=== PATIENT | female | born 1935 | race Caucasian/White ===

== ENCOUNTER 2021-10-05 13:12 | Emergency (ER) | payer MEDICARE, OTHER, SELFPAY ==
--- NOTE | ~2021-10-05 | XR_ITS ---
EXAMINATION: LUMBAR SPINE AND SACRUM. CLINICAL INFORMATION: Pain after fall COMPARISON: None TECHNIQUE: 3 views of lumbar spine and 3 views of the sacrum FINDINGS: Lumbar spine there are mild degenerative changes with grade 1 anterior listhesis of L4 over L5 and arthropathy at the level of L4-L5 and L5-S1. There is mild narrowing cough L1-L2 and L2-L3. No evidence of fractures. There are incidental findings of pelvic calcifications on the right is likely in the uterine fibroids. Sacrum and AP pelvis reveals no fractures. Sacroiliac joints are unremarkable. XR/XR sacrum coccyx min 2V IMPRESSION: No fractures seen. 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 Dystrophic calcifications in the uterine fibroids on the right.
--- NOTE | ~2021-10-05 | XR_ITS ---
EXAMINATION: XR WRIST, LEFT CLINICAL INFORMATION: Pain after fall COMPARISON: None TECHNIQUE: PA, lateral, and oblique views of the left wrist. FINDINGS: The bones and soft tissues are normal. No fracture. Alignment is anatomic with normal joint spaces. No erosions or abnormal soft tissue calcifications. XR/XR wrist LT 2V IMPRESSION: Normal left wrist.
--- NOTE | ~2021-10-05 | XR_ITS ---
EXAMINATION: LUMBAR SPINE AND SACRUM. CLINICAL INFORMATION: Pain after fall COMPARISON: None TECHNIQUE: 3 views of lumbar spine and 3 views of the sacrum FINDINGS: Lumbar spine there are mild degenerative changes with grade 1 anterior listhesis of L4 over L5 and arthropathy at the level of L4-L5 and L5-S1. There is mild narrowing cough L1-L2 and L2-L3. No evidence of fractures. There are incidental findings of pelvic calcifications on the right is likely in the uterine fibroids. Sacrum and AP pelvis reveals no fractures. Sacroiliac joints are unremarkable. XR/XR lumbar spine 2-3V IMPRESSION: No fractures seen. 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 Dystrophic calcifications in the uterine fibroids on the right.
[2021-10-05 13:25] VITALS: BP 122/60; PULSE 77; RESP 14; TEMP 37.1; O2SAT 93; BMI 30.2
[2021-10-05 13:31] VITALS: BP 125/77; PULSE 83; O2SAT 16
--- NOTE | 2021-10-05 13:52 | ED_ITS ---
HPI - Back Pain/Injury General Chief Complaint: Back Pain/Injury Stated Complaint: fall Time Seen by Provider: 10/05/21 13:43 Source: patient Mode of arrival: ambulatory Limitations: no limitations History of Present Illness HPI Narrative: 85-year-old female who presents emergency department for evaluation of a fall at home. Patient states she walks with a walker. She was walking towards the bathroom when she slipped and fell. She states she landed on her buttocks and struck her back on something that was protruding from the wall. She denied any head injury. She states that her son helped her up and she was able to walk with a walker. She did take some Tylenol around 12:00 p.m. with no relief for pain. She states that since the fall she has been having constant, severe pain in her buttocks and lower back area. The pain is a sharp pain which is worse with movement. The pain is moderate to severe in intensity. She is also complaining of pain in her left wrist . She states the pain is worse with movement and is [id number] in intensity. She denied any head injury. She denied loss of consciousness. She was not ill in any way prior to the fall. The patient has not been vaccinated for COVID-19. Related Data Allergies Allergy/AdvReac Type Severity Reaction Status Date / Time No Known Allergies Allergy Unverified 06/02/20 14:45 [No Known Allergies*] Review of Systems Review of Systems: Yes all other systems are reviewed and are negative [facility] Past Medical History [facility] Narrative: Past medical history: None. Past surgical history: Appendecto my, cholecystectomy. Social history: Patient lives at home with her son. She stop smoking 4 months prior. She smoked 1 pack of cigarettes per day times 15 years. She denies alcohol use. She denies drug use. Medical History FH: cholecystectomy Surgical History History of appendectomy Social History Social History Advance Directives: No Advance Directives Information Provided: No Physical Exam Vital Signs: Vital Signs: Last Vital Signs Temp 98.3 F 10/05/21 15:27 Pulse 71 01/20/22 15:27 Resp 16 10/05/21 15:27 BP 121/73 10/05/21 15:27 Pulse Ox 92 10/05/21 15:27 BMI result Body Mass Index 30.2 Const: General: cooperative and no acute distress Orientation/consciousness: oriented to person and oriented to place Limitations: no limitations HENMT: Head: Yes normal to inspection, Yes normocephalic and Yes atraumatic Ears: external ears normal General nose exam: Normal external nose present Face and sinus: Yes normal facial exam Mouth: Normal oral and palatal mucosa present Throat: Yes posterior oropharynx normal Eyes: General: appearance normal, both eyes and all related structures Pupils: Equal, round and reactive pupils present Neck: Neck: Yes normal visual inspection, Yes no lymphadenopathy, Yes trachea midline and Yes supple Chest: Chest palpation & inspection: normal inspection of the chest and normal palpation of entire chest wall Resp: Effort & Inspection: normal respiratory effort and able to speak in complete sentences Auscultation: clear to auscultation bilaterally Cardio: Rate: regular rate Rhythm: regular rhythm Heart sounds: S1 normal heart sound present, S2 normal heart sound present and no murmurs GI: Inspection: Yes normal to inspection Palpation (GI): Soft to palpation, nontender and no guarding Auscultation: normal bowel sounds Back/Spine/Pelvis: Thoracic/Lumbar Spine: thoracic and lumbar spine normal to inspection, paraspinal muscle tenderness (Lumbar sacral area) bilaterally, No thoracic spinal tenderness, lumbar spinal tenderness at L1, at L2, at L3, at L4 and at L5 and No straight leg raise positive Coccyx: Coccyx tenderness present (Moderate to severe) on direct palpation; Negative for associated swelling Skin: General skin exam: no rashes or lesions noted Neuro: General: oriented to person and oriented to place Cranial nerves: Yes CN's II-XII intact bilaterally and Yes Equal, round and reactive pupils present Cognition (Neuro): normal cognition Motor exam (neuro): 5/5 motor strength present throughout Extrem: Other: Tender left wrist with full range of motion, no ecchymosis or soft tissue swelling, neurovascular intact Psych: Appearance: grossly normal Speech and movement: Normal speech and movement present Affect: normal affect Attitude: cooperative Thought process: Normal thought process present Thought content: Normal thought content present Course Course Course Narrative: 85-year-old female who presents emergency department for evaluation of a slip and fall at home. Patient was walking to her bathroom using her walker when she slipped, fell landed on her buttocks and struck her back on an object protruding from the wall. Her son was able to help her up and she was able to walk with her walker. She did take some Tylenol prior to coming to the emergency department but the pain got worse, she states she had more difficulty moving , therefore she came to the emergency department for evaluation. Vital signs were normal. Examination did reveal tenderness palpation of her lumbar sacral and coccyx spine as well as the paraspinal muscles in this area. She also had tenderness palpation of her left wrist. Patient was ordered to get Motrin 400 mg orally. I did order lumbar sacral coccyx spine x-rays and a left wrist x-ray. 1603: X-rays revealed no acute fractures. Patient's presentation is most likely consistent with contusion of her lower back and coccyx and sprain of her left wrist. The patient was advised to take Tylenol and ibuprofen for pain. She is also advised to use ice. She was given printed and verbal instructions and discharged home. Discharge Plan Discharge Clinical Impression: Contusion of lower back Qualifiers: Encounter type: initial encounter Qualified Code(s): S30.0XXA - Contusion of lower back and pelvis, initial encounter Left wrist sprain Qualifiers: Encounter type: initial encounter Qualified Code(s): S63.502A - Unspecified sprain of left wrist, initial encounter Patient Disposition: Home, Self-Care Instructions: Contusion in Adults (ED), Acute Low Back Pain (ED) Additional Instructions: The x-ray of your lumbar, sacral and coccygeal spine revealed no broken bones which is very reassuring. Your pain is most likely secondary to bruising ( contusions) to your lower back and buttocks area from your fall. Back Pain Discharge Instructions: Take ibuprofen 200 mg pills, 2 pills every 6 hours as needed for pain. Take Tylenol (acetaminophen) 500 mg pills, 2 pills every 4 to 6 hours as needed for pain. Apply ice for 15 minutes to the area that hurts on your back, then apply a heating a pad on low for 15 minutes. Do this 4-6 times a day to help reduce the pain in your back. Continue with normal activities as tolerated since staying in bed and not moving around will make your pain worse. . Please return to the Emergency Department or see your doctor immediately if your symptoms get worse or if you develop any new symptoms that are concerning you. Follow up with your doctor in 2 day. Please read the other printed discharge instructions on acute lower back pain and contusions in adults
[2021-10-05] MEDS: Ibuprofen 400 MG TABLET PO (14:16)
[2021-10-05 15:27] VITALS: BP 121/73; PULSE 71; RESP 16; TEMP 36.8; O2SAT 92
== END 2021-10-05 19:20 | disposition home or self-care (01) ==
PROVIDERS: Emergency Provider Emergency Medicine Emergency Medical Services
DX: S30.0XXA Contusion of lower back and pelvis, initial encounter (principal); S63.502A Unspecified sprain of left wrist, initial encounter; W01.0XXA Fall on same level from slipping, tripping and stumbling without subsequent striking against object, initial encounter; Y93.01 Activity, walking, marching and hiking; Y92.039 Unspecified place in apartment as the place of occurrence of the external cause; Y99.9 Unspecified external cause status
CPT/HCPCS: 72100; 72220; 73100; 99283; 99284

== ENCOUNTER 2021-10-20 15:53 | Inpatient (IN) | payer MEDICARE, OTHER, SELFPAY ==
--- NOTE | ~2021-10-20 | XR_ITS ---
EXAMINATION: XR HIP, LEFT CLINICAL INFORMATION: Hip pain. Fall. COMPARISON: None TECHNIQUE: Frontal view of chest. Two views of the left hip. FINDINGS: No acute abnormality. No fracture or dislocation. Mild degenerative change of hip joints. Sacroiliac joints are normal. Normal symphysis pubis. Degenerative spondylosis lower lumbar spine. Vascular calcification of iliac arteries. XR/XR hip LT min 2V IMPRESSION: No acute abnormality of pelvis or hips.
--- NOTE | ~2021-10-20 | CT_ITS ---
EXAMINATION: CT ABDOMEN AND PELVIS WITHOUT CONTRAST CLINICAL INFORMATION: Evaluate for a mass. COMPARISON: CTA of the abdomen and pelvis dated from 06/17/2015. TECHNIQUE: Multidetector volumetric imaging was performed from the superior aspect of the liver through the pubic symphysis. Sagittal and coronal reformatted images were obtained on the technologist's workstation. This CT examination was performed using dose optimization techniques as appropriate, variously including the following: *Automated exposure control *Adjustment of mA and/or kV according to patient size (this includes techniques or standardized protocols for targeted exams where dose is matched to indication/reason for exam; i.e. extremities or head) *Use of iterative reconstruction technique DLP: 486 mGy-cm FINDINGS: Motion degraded study. LUNG BASES: Interlobular septal thickening in the right lung base with multiple subcentimeter bilateral pulmonary nodules. Please refer to separate report from same day CT chest for additional details. LIVER, GALLBLADDER, AND BILIARY TREE: The noncontrast liver is normal in size, shape, and attenuation. No focal hepatic lesion or biliary ductal dilatation is present. The gallbladder is not clearly visualized, possibly surgically removed. PANCREAS: Atrophic. The main pancreatic duct is nondilated. No peripancreatic free fluid or fat stranding. SPLEEN: Unremarkable. ADRENAL GLANDS: New bilateral adrenal masses measuring on the left side approximately 2.9 x 3.3 cm and on the right side approximately 3.5 x 2.7 cm. KIDNEYS AND URETERS: The kidneys are normal in size, shape, and attenuation. Redemonstration of water density cysts. No hydronephrosis, hydroureter, or calculi seen. No perinephric stranding. BLADDER: Unremarkable. GASTROINTESTINAL TRACT: The bowel is underdistended limiting assessment of wall thickening and mural abnormalities. The stomach and the small bowel are nondilated. No pericolic inflammatory changes. Extensive diverticulosis of the distal colon. The appendix is not visualized. ABDOMINAL WALL: No significant hernia is appreciated. LYMPH NODES: New retroperitoneal lymphadenopathy, predominantly centered at the level of L1-L3, measuring up to 1.5 cm in maximum short axis. Redemonstration of a conglomerate of mesenteric calcifications at the level of L4-L5, stable since 2015. VASCULAR: Extensive atherosclerotic disease. The abdominal aorta measures up to 3.2 cm in maximum diameter which is increased from 2.8 cm in 2015. PELVIC VISCERA: No pelvic masses. OSSEOUS STRUCTURES: Redemonstration of a right gluteal lipoma. New compression deformity at L2. There is also a new lytic and destructive appearing lesion in the right superior pubic rami (12:660). CT/CT abdomen pelvis wo con IMPRESSION: Bilateral adrenal masses and new retroperitoneal lymphadenopathy are concerning for metastatic disease. New compression deformity at L2 and lytic destructive appearing lesion in the right superior pubic rami concerning for pathologic fractures and metastatic bony disease. The lack of intravenous contrast limits evaluation of solid visceral organs including the liver, spleen, pancreas, and kidneys. Additionally, bowel underdistention limits assessment of underlying bowel lesions. The abdominal aorta measures up to 3.2 cm in maximum diameter, previously 2.8 cm. If indicated, recommend consultation with a vascular specialist.
--- NOTE | ~2021-10-20 | CT_ITS ---
EXAMINATION: CT HEAD WITHOUT CONTRAST CT CERVICAL SPINE WITHOUT CONTRAST CLINICAL INFORMATION: Head injury. COMPARISON: CTA of the head 01/10/2016. MRI brain 01/09/2016 TECHNIQUE: Imaging was performed from the skull base to vertex without intravenous administration of contrast. In addition, helical noncontrast CT imaging was acquired through the cervical spine and source images were reviewed along with axial reconstructions and sagittal and coronal MPRs. [This CT examination was performed using dose optimization techniques as appropriate, variously including the following: *Automated exposure control *Adjustment of mA and/or kV according to patient size (this includes techniques or standardized protocols for targeted exams where dose is matched to indication/reason for exam; i.e. extremities or head) *Use of iterative reconstruction technique] DLP: 1145 mGy-cm FINDINGS: HEAD: There are multiple hyperdense lesions within the brain parenchyma bilaterally consistent with metastatic disease. One the largest is in the right frontal lobe and at the dick-white matter junction. This measures 1.3 cm. A small calcification associated with this lesion. Axial image 58/81 series 3. There is vasogenic edema in the surrounding white matter tracks. Additional scattered lesions present bilaterally. Some retail wireless sales representative lesions are; 1. Right occipital lobe 1.1 cm. Axial image 47/81. 2. Left frontal lobe image 51/81 series 3 5 mm lesion. 3. Left occipital lobe image 51/81 series 3 5 mm lesion. 4. 4 mm lesion at the vertex right frontal lobe axial image 64/81 series 3. 5. 4 mm lesion in the left frontal lobe at the vertex axial image 64/81 series 3 6. 3 mm lesion at the vertex left frontal and axial image 67/81 series 3. No midline shift. No intracranial hemorrhage. No extra-axial collection. There is generalized global volume loss. There is marked prominence of the ventricles and the sulci . There is moderate hypodensity of the periventricular white matter due to chronic small vessel ischemic disease. There are vascular calcifications of the internal carotid arteries bilaterally. CERVICAL SPINE: There is no evidence of acute cervical spine fracture. Vertebral bodies remain normal in height. Cervical vertebrae have normal alignment. There is multilevel degenerative spondylosis of the cervical spine with disc height narrowing and endplate spurs and facet joint arthrosis No pre- or paravertebral soft tissue abnormality is identified. Limited assessment of the lung apices is unremarkable. CT/CT cervical spine wo con IMPRESSION: 1. Multiple hyperdense lesions in the brain parenchyma consistent with metastatic disease. There is associated vasogenic edema associated with the lesions. The edema is most pronounced in the right frontal lobe. 2. No CT evidence of acute cervical spine fracture or traumatic subluxation
--- NOTE | ~2021-10-20 | CT_ITS ---
EXAMINATION: CT HIP WITHOUT CONTRAST, LEFT CLINICAL INFORMATION: Pain COMPARISON: Hip radiographs 10/20/2021 TECHNIQUE: Helical scanning was performed with submillimeter collimation through the pelvis with the use of oral contrast without intravenous contrast. Sagittal and coronal multiplanar 2-D reconstructions were obtained. This CT examination was performed using dose optimization techniques as appropriate, variously including the following: *Automated exposure control *Adjustment of mA and/or kV according to patient size (this includes techniques or standardized protocols for targeted exams where dose is matched to indication/reason for exam; i.e. extremities or head) *Use of iterative reconstruction technique DLP: 175 mGy-cm FINDINGS: Colonic diverticulosis without evidence of diverticulitis. No lymphadenopathy. Partially imaged urinary bladder is unremarkable. No acute fracture or dislocation. There are mild degenerative changes of the left hip with acetabular spurring and subchondral cystic change. No joint effusion. Soft tissues are unremarkable. CT/CT hip LT wo con IMPRESSION: No acute fracture or dislocation. Mild degenerative changes of the left hip.
--- NOTE | ~2021-10-20 | CT_ITS ---
EXAMINATION: CT CHEST WITHOUT CONTRAST CLINICAL INFORMATION: Shortness of breath. COMPARISON: CT chest dated from 08/15/2016. TECHNIQUE: Multidetector volumetric CT imaging of the chest was done. Axial MIP volume rendering provided. Sagittal and coronal reformatted images were obtained. This CT examination was performed using dose optimization techniques as appropriate, variously including the following: *Automated exposure control *Adjustment of mA and/or kV according to patient size (this includes techniques or standardized protocols for targeted exams where dose is matched to indication/reason for exam; i.e. extremities or head) *Use of iterative reconstruction technique DLP: 496 mGy-cm FINDINGS: LUNGS: A right upper lobe pulmonary mass measuring 3.1 x 3 cm (7:203) is markedly increased in size from 0.9 x 0.9 cm in 2016. A somewhat irregular and difficult to accurately define nodule in the right upper lobe measuring 1.6 x 1.1 cm (7:172) in retrospect measured 0.2 cm in 2016. There are multiple additional new pulmonary nodules. Some of which are for example: A 0.9 cm subpleural nodularity in the right apex (7:98) and a 0.8 cm pulmonary nodule in the posterior aspect of the right upper lobe (7:194).. There is a background of irregular interlobular septal thickening throughout the right lung. A 0.3 cm pulmonary nodule in the left apex (7:89) is unchanged. A 0.3 cm pulmonary nodule posteriorly in the left upper lobe (7:153) appears new. A few other sub-2 mm pulmonary nodules in the left lower lobe, for instance image 250 of series 7 are also new. MEDIASTINUM: New significant mediastinal or hilar lymphadenopathy. For instance, a 2.3 cm short axis lower pretracheal lymph node (5:22), a 1.9 cm short axis subcarinal lymph node (5:27) and a conglomerate of approximately 3.4 x 2.2 cm right hilar lymph nodes (5:31). Normal heart size. Small pericardial effusion. 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 Normal appearance of the thyroid gland. PLEURA: No pleural effusion or pneumothorax. AXILLA: No axillary lymphadenopathy or chest wall masses. UPPER ABDOMEN: No abnormalities in the limitedly visualized upper abdomen. Please refer to same-day CT of the abdomen/pelvis. OSSEOUS STRUCTURES: No acute or aggressive osseous abnormalities. Thoracic spondylosis. CT/CT chest wo con IMPRESSION: Complex examination. Significant increased in size of several pulmonary nodules, some of which are now masses, with also multiple new bilateral pulmonary nodules. A dominant mass is situated in the right upper lobe measuring up to 3.1 cm. There is also new irregular septal thickening throughout the right lung and new massive mediastinal and hilar lymphadenopathy. These constellation of findings are worrisome for malignancy with metastatic lymphadenopathy and lymphangitic spread of disease in the right lung. However, other etiologies such as florid sarcoidosis cannot be entirely ruled out. Recommend tissue sampling.
--- NOTE | ~2021-10-20 | XR_ITS ---
EXAMINATION: XR CHEST CLINICAL INFORMATION: Shortness of breath. COMPARISON: 01/03/2017 chest radiograph. TECHNIQUE: Frontal view of the chest was obtained. FINDINGS: Increased right perihilar markings are seen with a nodular opacity in the right midlung measuring approximately 3.0 x 2.3 cm. The left lung is clear. The heart and mediastinal structures are unremarkable. XR/XR chest 1V IMPRESSION: 3.0 cm nodular opacity in the right midlung is nonspecific. This could represent a pulmonary nodule. Loculated fissural fluid cannot be excluded. Asymmetric increased right perihilar markings could represent infiltrates as well. A follow-up chest radiograph following termination of treatment is recommended to assess for improvement/resolution. If these findings do not resolve a chest CT scan is recommended for better characterization.
--- NOTE | ~2021-10-20 | CT_ITS ---
EXAMINATION: CT HEAD WITHOUT CONTRAST CT CERVICAL SPINE WITHOUT CONTRAST CLINICAL INFORMATION: Head injury. COMPARISON: CTA of the head 01/10/2016. MRI brain 01/09/2016 TECHNIQUE: Imaging was performed from the skull base to vertex without intravenous administration of contrast. In addition, helical noncontrast CT imaging was acquired through the cervical spine and source images were reviewed along with axial reconstructions and sagittal and coronal MPRs. [This CT examination was performed using dose optimization techniques as appropriate, variously including the following: *Automated exposure control *Adjustment of mA and/or kV according to patient size (this includes techniques or standardized protocols for targeted exams where dose is matched to indication/reason for exam; i.e. extremities or head) *Use of iterative reconstruction technique] DLP: 1145 mGy-cm FINDINGS: HEAD: There are multiple hyperdense lesions within the brain parenchyma bilaterally consistent with metastatic disease. One the largest is in the right frontal lobe and at the dick-white matter junction. This measures 1.3 cm. A small calcification associated with this lesion. Axial image 58/81 series 3. There is vasogenic edema in the surrounding white matter tracks. Additional scattered lesions present bilaterally. Some insurance account representative lesions are; 1. Right occipital lobe 1.1 cm. Axial image 47/81. 2. Left frontal lobe image 51/81 series 3 5 mm lesion. 3. Left occipital lobe image 51/81 series 3 5 mm lesion. 4. 4 mm lesion at the vertex right frontal lobe axial image 64/81 series 3. 5. 4 mm lesion in the left frontal lobe at the vertex axial image 64/81 series 3 6. 3 mm lesion at the vertex left frontal and axial image 67/81 series 3. No midline shift. No intracranial hemorrhage. No extra-axial collection. There is generalized global volume loss. There is marked prominence of the ventricles and the sulci . There is moderate hypodensity of the periventricular white matter due to chronic small vessel ischemic disease. There are vascular calcifications of the internal carotid arteries bilaterally. CERVICAL SPINE: There is no evidence of acute cervical spine fracture. Vertebral bodies remain normal in height. Cervical vertebrae have normal alignment. There is multilevel degenerative spondylosis of the cervical spine with disc height narrowing and endplate spurs and facet joint arthrosis No pre- or paravertebral soft tissue abnormality is identified. Limited assessment of the lung apices is unremarkable. CT/CT head/brain wo con IMPRESSION: 1. Multiple hyperdense lesions in the brain parenchyma consistent with metastatic disease. There is associated vasogenic edema associated with the lesions. The edema is most pronounced in the right frontal lobe. 2. No CT evidence of acute cervical spine fracture or traumatic subluxation
[2021-10-20 16:11] VITALS: BP 100/54; BP 140/66; PULSE 78; RESP 18; TEMP 36.3; O2SAT 86; BMI 23.8
--- NOTE | 2021-10-20 16:31 | ECG_ITS ---
Test Reason : FALL Blood Pressure : / mmHG Vent. Rate : 072 BPM Atrial Rate : 072 BPM P-R Int : 186 ms QRS Dur : 078 ms QT Int : 400 ms P-R-T Axes : 040 006 053 degrees QTc Int : 438 ms Normal sinus rhythm Low voltage QRS Borderline ECG When compared with ECG of 07-JAN-2017 11:07, No significant change was found Referred By: Ana Pedroza Electronically Signed By:LUZ MARIA OLEA
--- NOTE | 2021-10-20 16:41 | ED_ITS ---
HPI - Fall General Chief Complaint: Fall Stated Complaint: L HIP PAIN S/P FALL A WEEK AGO Time Seen by Provider: 10/20/21 16:19 History of Present Illness HPI Narrative: Patient is an 85-year-old female with a history smoking. Status post fall on Saturday. Hit her head. Been having increasing pain in the left hip area. Patient denies any loss of consciousness. Is not on any blood thinners. No nausea no vomiting. Minimal coughing which is baseline. Positive generalized malaise baseline is not on oxygen complaining of pain getting worse. Worse when she bears weight. patient not immunized for COVID Related Data Home Medications Medication Instructions Recorded Confirmed atorvastatin 20 mg tablet 1 tab PO DAILY 10/20/21 10/20/21 calcium carbonate 600 mg-vitamin 1 tab PO BID 10/20/21 10/20/21 D3 10 mcg (400 unit) tablet dabigatran etexilate 75 mg capsule 1 cap PO BID 10/20/21 10/20/21 (Pradaxa) diltiazem HCl 180 mg 1 cap PO QAM 10/20/21 10/20/21 capsule,extended release 24 hr, controlled (DILT-XR) lisinopril 20 mg tablet 1 tab PO DAILY 10/20/21 10/20/21 Allergies Allergy/AdvReac Type Severity Reaction Status Date / Time No Known Allergies Allergy Verified 10/20/21 16:11 [No Known Allergies*] Review of Systems Verdana 4l Review of Systems: Verdana 4d No fever no chills. Verdana 4d Positive chronic cough positive generalized malaise Verdana 4d Yes all other systems are reviewed and are negative [facility] Past Medical History Attestation statement: The following information was validated with the patient. Medical History FH: cholecystectomy Surgical History History of appendectomy Social History Social History Alcohol intake: never Patient Tobacco Use Status: Former Tobacco user Advance Directives: No Advance Directives Information Provided: No Physical Exam Verdana 4l Vital Signs: Verdana 4d Verdana 4d Vital Signs: Verdana 4d Verdana 4Bd Last Vital Signs Verdana 4d Emergency Medical Service Manager New 4d Emergency Medical Service Manager New 4d Temp 97.3 F 10/20/21 16:11 Emergency Medical Service Manager New 4d Pulse 78 10/20/21 16:11 Emergency Medical Service Manager New 4d Resp 18 10/20/21 16:11 BP 100/54 L 10/20/21 16:11 Pulse Ox 86 L 10/20/21 16:11 BMI result Body Mass Index 23.8 Appearance: Alert. Oriented X3. No acute distress. Eyes: Pupils equal, round and reactive to light. ENT: Pharynx normal. Neck: Normal inspection. Neck supple. No lymph nodes noted. No crepitus CVS: Normal heart rate and rhythm. Pulses normal. Normal S1 and S2 Respiratory: diminished breath sounds bilaterally Abdomen: Soft and nontender. No rigidity. No distention. good BS x4 Skin: Skin warm and dry. Normal skin color. Normal skin turgor. Extremities: No lower extremity edema. Neurovascular intact to all extremities. pain on flexion of the left hip. There is no gross shortening noted. Sensation intact. Pulses 2+ at dorsalis pedis. Dorsiflexion plantar flexion intact. Neuro: Oriented X 3. No motor deficit. No sensory deficit. Moving all e xtermities. No slurred speech MDM - Fall MDM Narrative Medical decision making narrative: Positive generalized malaise weakness. Frequent falls. Patient's EKG showed a sinus pattern heart rate was 70 MD QRS QT within normal limits is no acute ST segment elevation. Patient had decreased O2 sat but felt less likely patient has PE as patient has had a history of being on Pradaxa. Family came patient has been compliant. CT scan of the head was done as patient is on Pradaxa. Multiple falls potential trauma. 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 Question primary. CT scan of C-spine were grossly negative. X-ray of the hip was done to rule out fracture. No gross fracture was noted. CT scan of the hip showed no acute fracture. More likely patient has arthritis contusion. Especially in the setting of the fall being approximately 5-[address] scan of the chest abdomen pelvis was done. It was done without contrast because patient had an elevated creatinine. The result is still pending. A dose of steroid was given for the edema in the brain. Patient's finding was discussed with her and with her daughter. Case was discussed with the hospitalist team. Will admit for further evaluation. Medical Records Attestation: I reviewed the patient's medical records. Lab Data Attestation: I reviewed the patient's lab results. Result diagrams: 10/20/21 17:19 10/20/21 17:19 Labs: Lab Results 10/20/21 10/20/21 10/20/21 Range/Units 17:19 17:19 17:19 WBC 6.9 (4.8-10.8) X10*3/uL RBC 4.56 (4.20-5.50) X10*6/uL Hgb 13.7 (12.0-16.0) g/dl Hct 41.4 (37.0-47.0) % MCV 90.8 (80.0-98.0) fL MCH 30.0 (27.0-33.0) pg MCHC 33.1 (31.0-35.0) g/dl RDW 14.8 (11.0-16.0) % Plt Count 227 (160-400) X10*3/uL MPV 11.5 (9.4-12.3) fL Immature Gran % (Auto) 0.4 (0.0-0.4) % Neut % (Auto) 67.8 (45-73) % Lymph % (Auto) 17.1 L (20-40) % Bourbon % (Auto) 8.5 (2-11) % Eos % (Auto) 5.2 H (0-4) % Baso % (Auto) 1.0 (0-2) % Lymph # (Auto) 1.2 (1.2-4.9) X10*3/uL [place]bon # (Auto) 0.6 (0.1-1.2) X10*3/uL Eos # (Auto) 0.4 (0.0-0.4) X10*3/uL Baso # (Auto) 0.1 (0.0-0.2) X10*3/uL Abs Immat Gran (auto) 0.03 (0.00-0.03) X10*3/uL Absolute Neuts (auto) 4.7 (2.0-8.3) x10*3/uL Absolute Nucleated RBC 0.000 (0.0-0.012) X10*3/uL Nucleated RBC % (auto) 0.0 (0.0-0.2) /100WBC D-Dimer High Sensitivty 582 NG/ML Sodium (135-145) mmol/L Potassium (3.3-5.1) mmol/L Chloride (96-108) mmol/L Carbon Dioxide (22-29) mmol/L Anion Gap (12-20) BUN (9-16) mg/dL Creatinine (0.5-1.4) mg/dL Estim Creat Clear Calc Estimated GFR Random Glucose (60-115) mg/dL Calcium (8.4-10.2) mg/dL Phosphorus (2.7-4.5) mg/dL Magnesium (1.6-2.6) mg/dL Lactate Dehydrogenase (122-220) U/L Total Creatine Kinase (26-140) U/L Troponin I High Sens 13.7 (<3.5-17.0) ng/L C-Reactive Protein (< or = 0.50) mg/dL Procalcitonin ng/mL COVID-19 (KRUNAL) (Negative) COVID-19 Clin Com Influenza Type A (SAMREEN) (Negative) Influenza Type B (SAMREEN) (Negative) Influenza A & B Note 10/20/21 10/20/21 10/20/21 Range/Units 17:19 17:19 17:24 WBC (4.8-10.8) X10*3/uL RBC (4.20-5.50) X10*6/uL Hgb (12.0-16.0) g/dl Hct (37.0-47.0) % MCV (80.0-98.0) fL MCH (27.0-33.0) pg MCHC (31.0-35.0) g/dl RDW (11.0-16.0) % Plt Count (160-400) X10*3/uL MPV (9.4-12.3) fL Immature Gran % (Auto) (0.0-0.4) % Neut % (Auto) (45-73) % Lymph % (Auto) (20-40) % Bourbon % (Auto) (2-11) % Eos % (Auto) (0-4) % Baso % (Auto) (0-2) % Lymph # (Auto) (1.2-4.9) X10*3/uL Bourbon # (Auto) (0.1-1.2) X10*3/uL Eos # (Auto) (0.0-0.4) X10*3/uL Baso # (Auto) (0.0-0.2) X10*3/uL Abs Immat Gran (auto) (0.00-0.03) X10*3/uL Absolute Neuts (auto) (2.0-8.3) x10*3/uL Absolute Nucleated RBC (0.0-0.012) X10*3/uL Nucleated RBC % (auto) (0.0-0.2) /100WBC D-Dimer High Sensitivty NG/ML Sodium 137 (135-145) mmol/L Potassium 5.1 (3.3-5.1) mmol/L Chloride 100 (96-108) mmol/L Carbon Dioxide 26 (22-29) mmol/L Anion Gap 16 (12-20) BUN 68 H (9-16) mg/dL Creatinine 2.38 H (0.5-1.4) mg/dL Estim Creat Clear Calc 15.8 Estimated GFR 19 Random Glucose 103 (60-115) mg/dL Calcium 9.8 (8.4-10.2) mg/dL Phosphorus 4.8 H (2.7-4.5) mg/dL Magnesium 2.3 (1.6-2.6) mg/dL Lactate Dehydrogenase 208 (122-220) U/L Total Creatine Kinase 43 (26-140) U/L Troponin I High Sens (<3.5-17.0) ng/L C-Reactive Protein 4.64 H (< or = 0.50) mg/dL Procalcitonin 0.16 ng/mL COVID-19 (KRUNAL) (Negative) COVID-19 Clin Com Influenza Type A (SAMREEN) Negative (Negative) Influenza Type B (SAMREEN) Negative (Negative) Influenza A & B Note See Note 10/20/21 Range/Units 17:24 WBC (4.8-10.8) X10*3/uL RBC (4.20-5.50) X10*6/uL Hgb (12.0-16.0) g/dl Hct (37.0-47.0) % MCV (80.0-98.0) fL MCH (27.0-33.0) pg MCHC (31.0-35.0) g/dl RDW (11.0-16.0) % Plt Count (160-400) X10*3/uL MPV (9.4-12.3) fL Immature Gran % (Auto) (0.0-0.4) % Neut % (Auto) (45-73) % Lymph % (Auto) (20-40) % Bourbon % (Auto) (2-11) % Eos % (Auto) (0-4) % Baso % (Auto) (0-2) % Lymph # (Auto) (1.2-4.9) X10*3/uL [place]bon # (Auto) (0.1-1.2) X10*3/uL Eos # (Auto) (0.0-0.4) X10*3/uL Baso # (Auto) (0.0-0.2) X10*3/uL Abs Immat Gran (auto) (0.00-0.03) X10*3/uL Absolute Neuts (auto) (2.0-8.3) x10*3/uL Absolute Nucleated RBC (0.0-0.012) X10*3/uL Nucleated RBC % (auto) (0.0-0.2) /100WBC D-Dimer High Sensitivty NG/ML Sodium (135-145) mmol/L Potassium (3.3-5.1) mmol/L Chloride (96-108) mmol/L Carbon Dioxide (22-29) mmol/L Anion Gap (12-20) BUN (9-16) mg/dL Creatinine (0.5-1.4) mg/dL Estim Creat Clear Calc Estimated GFR Random Glucose (60-115) mg/dL Calcium (8.4-10.2) mg/dL Phosphorus (2.7-4.5) mg/dL Magnesium (1.6-2.6) mg/dL Lactate Dehydrogenase (122-220) U/L Total Creatine Kinase (26-140) U/L Troponin I High Sens (<3.5-17.0) ng/L C-Reactive Protein (< or = 0.50) mg/dL Procalcitonin ng/mL COVID-19 (KRUNAL) Negative (Negative) COVID-19 Clin Com See Note Influenza Type A (SAMREEN) (Negative) Influenza Type B (SAMREEN) (Negative) Influenza A & B Note Critical Care Time Critical Care Time Critical Care Time: Yes Total Critical Care Time: 40 Attestation: I have personally provided 40 minutes of critical care time exclusive of time spent on separately billable procedures. Time includes review of lab data, radiology results, discussion with consultants, and monitoring for potential decompensation. Interventions were performed as documented above Discharge Plan Discharge Patient Disposition: Admitted As Inpatient Prescriptions: No Action atorvastatin 20 mg tablet 1 tab PO DAILY 0RF lisinopril 20 mg tablet 1 tab PO DAILY 0RF diltiazem HCl [DILT-XR] 180 mg capsule,ext.rel 24h degradable 1 cap PO QAM 0RF calcium carbonate-vitamin D3 600 mg-10 mcg (400 unit) tablet 1 tab PO BID 0RF Pradaxa 75 mg capsule 1 cap PO BID 0RF
[2021-10-20] MEDS: methylPREDNISolone Sod Succ 125 MG/2 ML VIAL IVPUSH (17:27)
[2021-10-20 17:34] LABS: MANUAL DIFF FLAG NO
--- NOTE | 2021-10-20 17:38 | PC.NURSE ---
Patient alert and oriented to person place and time. Responds to commands. Patient has pain when moving left leg due to hip pain from fall.
[2021-10-20 17:48] LABS: Basophils Absolute Auto 0.1 X10*3/uL (0.0-0.2); Eosinophils Absolute Auto 0.4 X10*3/uL (0.0-0.4); Eosinophils Percent Auto 5.2 % (0-4); Hematocrit 41.4 % (37.0-47.0); Hemoglobin 13.7 g/dl (12.0-16.0); Imm Gran Abs Auto 0.03 X10*3/uL (0.00-0.03); Imm Gran Pct Auto 0.4 % (0.0-0.4); Lymphocytes Absolute Auto 1.2 X10*3/uL (1.2-4.9); Lymphocytes Percent Auto 17.1 % (20-40); Mean Corpuscular HGB Conc 33.1 g/dl (31.0-35.0); Mean Corpuscular Volume 90.8 fL (80.0-98.0); Mean Platelet Volume 11.5 fL (9.4-12.3); Monocytes Absolute Auto 0.6 X10*3/uL (0.1-1.2); Monocytes Percent Auto 8.5 % (2-11); Neutrophils Absolute Auto 4.7 x10*3/uL (2.0-8.3); Neutrophils Percent Auto 67.8 % (45-73); Platelet Count 227 X10*3/uL (160-400); Red Blood Count 4.56 X10*6/uL (4.20-5.50); Red Cell Distribution Width 14.8 % (11.0-16.0); White Blood Count 6.9 X10*3/uL (4.8-10.8)
[2021-10-20 17:52] LABS: D Dimer High Sensitivity 582 NG/ML
[2021-10-20 17:55] LABS: COVID-19 Test Negative (Negative)
[2021-10-20 17:56] LABS: Influenza A Negative (Negative); Influenza B2 Negative (Negative)
[2021-10-20 18:04] LABS: Troponin-I High Sensitivity 13.7 ng/L (<3.5-17.0)
[2021-10-20 18:08] LABS: C Reactive Protein 4.64 mg/dL (< or = 0.50); Glucose Random 103 mg/dL (60-115); Lactate Dehydrogenase 208 U/L (122-220); Magnesium 2.3 mg/dL (1.6-2.6); Phosphorus 4.8 mg/dL (2.7-4.5)
[2021-10-20 18:25] LABS: Anion Gap 16 (12-20); Blood Urea Nitrogen 68 mg/dL (9-16); Calcium 9.8 mg/dL (8.4-10.2); Carbon Dioxide 26 mmol/L (22-29); Chloride 100 mmol/L (96-108); Creatinine Clr Calc Pharmacy 15.8; Estimated Glomerular Filt Rate 19; Potassium 5.1 mmol/L (3.3-5.1); Sodium 137 mmol/L (135-145)
[2021-10-20 18:27] LABS: Procalcitonin 0.16 ng/mL
--- NOTE | 2021-10-20 19:32 | P.HPHOSP_ITS ---
History of Present Illness Date of Service: 10/20/21 Chief Complaint: fall 85-year-old female with a past medical history of hypertension, hyperlipidemia, CVA, on home Pradaxa; presented to the hospital today with a chief complaint of fall. Most of the history obtained from the patient's daughter at bedside. Reportedly patient having been having multiple falls and unsteady on the gait lately. On last Saturday when she had a fall she hit her head. Also complains of urinary incontinence. Denies any chest pain or palpitations. Denies any syncopal episodes. Patient reportedly has mild left upper extremity weakness from prior stroke. Her great from prior stroke has significantly improved. Also reported pain in the hip since The of fall. Denies any fever chills cough. Denies any nausea vomiting or diarrhea. Review of all other systems is negative except mentioned above ER course: Per ER team patient on presentation noted to be saturating 86%; chest x-ray concerning for pneumonia. CT head was done which showed multiple metastasis. No midline shift. Noted vast with an acute edema. Patient received Decadron. Patient also had CT chest and CT abdomen done. Renal insufficiency noted with creatinine of 2.3. Admitted to the hospital for further [facility] Medical History FH: cholecystectomy Pertinent family history: reviewed Surgical History History of appendectomy Social History Alcohol intake: never Patient Tobacco Use Status: Former Tobacco user Advance Directives: No Advance Directives Information Provided: No Meds Allergies Allergy/AdvReac Type Severity Reaction Status Date / Time No Known Allergies Allergy Verified 10/20/21 16:11 [No Known Allergies*] Active Medications: Current Medications Acetaminophen (Acetaminophen 325 Mg Tablet) 650 mg PO Q6H PRN PRN Reason: Pain, Mild (Pain Scale 1-3) Atorvastatin Calcium (Atorvastatin Calcium 20 Mg Tablet) 20 mg PO DAILY [facility] Dexamethasone Sodium Phosphate (Dexamethasone Sod Phosphate 4 Mg/Ml Vial) 4 mg IVPUSH Q6H ZE Famotidine (Famotidine/Pf 20 Mg/2 Ml Vial) 20 mg IVPUSH BID ZE Melatonin (Melatonin 3 Mg Tablet) 6 mg PO BEDTIME PRN PRN Reason: Insomnia Pharmacy Consult (Consult Rx Perform Med Rec) 1 each MISCELLANE ONCE PRN PRN Reason: Consult order Senna (Sennosides 8.6 Mg Tablet) 17.2 mg PO BEDTIME PRN PRN Reason: Constipation Sodium Chloride (0.9 % Sodium Chloride Flush 3 Ml Syringe) 3 ml IVFLUSH QSHIFT [facility] Home Medications Medication Instructions Recorded Confirmed Last Taken Type atorvastatin 20 mg 1 tab PO DAILY 10/20/21 10/20/21 10/20/21 History tablet calcium carbonate 1 tab PO BID 10/20/21 10/20/21 10/20/21 History 600 mg-vitamin D3 10 mcg (400 unit) tablet dabigatran 1 cap PO BID 10/20/21 10/20/21 10/20/21 History etexilate 75 mg capsule (Pradaxa) diltiazem HCl 180 1 cap PO QAM 10/20/21 10/20/21 10/20/21 History mg capsule,extended release 24 hr, controlled (DILT-XR) lisinopril 20 mg 1 tab PO DAILY 10/20/21 10/20/21 10/20/21 History tablet Physical Exam Verdana 4l Vital Signs and Narrative: Verdana 4d Verdana 4d Vital Signs: Verdana 4d Verdana 4Bd Last Vital Signs Verdana 4d Media Production Manager New 4d Media Production Manager New 4d Temp 97.3 F 10/20/21 16:11 Media Production Manager New 4d Pulse 78 10/20/21 16:11 Media Production Manager New 4d Resp 18 10/20/21 16:11 BP 100/54 L 10/20/21 16:11 Pulse Ox 86 L 10/20/21 16:11 BMI result Body Mass Index 23.8 Gen: Appears be in no acute distress . Lying in the bed comfortably. HEENT: NCAT, Moist mucosa. Pulmonary: coarse breath sounds CVS: Normal S1-S2 Abdomen: BS+, Soft, Nontender Extremities: Warm well perfused Neuro: Alert and awake. noted weakness on the left upper extremity -chronic. Able to move the lower extremities equally. Breast exam: Examined along with the RN at bedside. No nodules noted. Results Labs CBC and Chem 7: 10/20/21 17:19 10/20/21 17:19 Labs: Laboratory Results - last 24 hr 02/01/0510/20/21 10/20/21 17:19 17:19 17:19 MCV 90.8 MCH 30.0 MCHC 33.1 RDW 14.8 Plt Count 227 MPV 11.5 Immature Gran % (Auto) 0.4 Neut % (Auto) 67.8 Lymph % (Auto) 17.1 L Boundary % (Auto) 8.5 Eos % (Auto) 5.2 H Baso % (Auto) 1.0 Lymph # (Auto) 1.2 Boundary # (Auto) 0.6 Eos # (Auto) 0.4 Baso # (Auto) 0.1 Abs Immat Gran (auto) 0.03 Absolute Neuts (auto) 4.7 Absolute Nucleated RBC 0.000 Nucleated RBC % (auto) 0.0 D-Dimer High Sensitivty 582 Anion Gap 16 Estim Creat Clear Calc 15.8 Estimated GFR 19 Random Glucose 103 Calcium 9.8 Phosphorus 4.8 H Magnesium 2.3 Lactate Dehydrogenase 208 Total Creatine Kinase 43 C-Reactive Protein 4.64 H Procalcitonin COVID-19 (KRUNAL) COVID-19 Clin Com Influenza Type A (SAMREEN) Influenza Type B (SAMREEN) Influenza A & B Note 10/20/21 10/20/21 10/20/21 17:19 17:24 17:24 MCV MCH MCHC RDW Plt Count MPV Immature Gran % (Auto) Neut % (Auto) Lymph % (Auto) Boundary % (Auto) Eos % (Auto) Baso % (Auto) Lymph # (Auto) Boundary # (Auto) Eos # (Auto) Baso # (Auto) Abs Immat Gran (auto) Absolute Neuts (auto) Absolute Nucleated RBC Nucleated RBC % (auto) D-Dimer High Sensitivty Anion Gap Estim Creat Clear Calc Estimated GFR Random Glucose Calcium Phosphorus Magnesium Lactate Dehydrogenase Total Creatine Kinase C-Reactive Protein Procalcitonin 0.16 COVID-19 (KRUNAL) Negative COVID-19 Clin Com See Note Influenza Type A (SAMREEN) Negative Influenza Type B (SAMREEN) Negative Influenza A & B Note See Note Imaging Radiologist's Impressions: Impressions Chest X-Ray 10/20/21 17:02 IMPRESSION: 3.0 cm nodular opacity in the right midlung is nonspecific. This could represent a pulmonary nodule. Loculated fissural fluid cannot be excluded. Asymmetric increased right perihilar markings could represent infiltrates as well. A follow-up chest radiograph following termination of treatment is recommended to assess for improvement/resolution. If these findings do not resolve a chest CT scan is recommended for better characterization. Hip X-Ray 10/20/21 17:02 IMPRESSION: No acute abnormality of pelvis or hips. Cervical Spine CT 10/20/21 17:04 IMPRESSION: 1. Multiple hyperdense lesions in the brain parenchyma consistent with metastatic disease. There is associated vasogenic edema associated with the lesions. The edema is most pronounced in the right frontal lobe. 2. No CT evidence of acute cervical spine fracture or traumatic subluxation Head CT 10/20/21 17:04 IMPRESSION: 1. Multiple hyperdense lesions in the brain parenchyma consistent with metastatic disease. There is associated vasogenic edema associated with the lesions. The edema is most pronounced in the right frontal lobe. 2. No CT evidence of acute cervical spine fracture or traumatic subluxation Hip CT 10/20/21 17:47 IMPRESSION: No acute fracture or dislocation. Mild degenerative changes of the left hip. Assessment and Plan Plan 85-year-old female with a past medical history of hypertension, AFiHLD, OA, CKD, CVA on Pradaxa, Pul Nodule presented to the hospital with a chief complaint of multiple falls. Noted to have following- Recurrent falls: Likely in the setting of brain metastasis. Fall precautions. CT C-spine showed no acute findings. CT hip showed no acute fracture. Lung mass/ Brain metastasis: CT showed multiple brain lesions with vasogenic edema. CT chest showed multiple pulmonary nodules and 3.1 cm mass in the right upper lobe. Also findings concerning for metastatic lymphadenopathy. CT abdomen showed bilateral adrenal masses and new retroperitoneal lym phadenopathy concerning for metastatic disease; Also noted new compression deformity of the L2 and lighting destructive lesion of the right superior pubic rami concerning for pathologic fracture/metastatic bony disease. discussed with Oncology Dr. Rodriguez; mentioned to give the patient d examethasone, to be evaluated in the morning. SHADE : Has Hx CKD- Unknown baseline Creatinine presentations 2.3. Likely prerenal. encouraged oral fluids. Pneumonia: Patient was hypoxic to 86%. placed on supplemental oxygen. Continue empiric ceftriaxone azithromycin. History of hypertension: Blood pressure currently on the soft side. Held lisinopril. Hx CVA: pt on Pradaxa per Daughter. spoke to Oncology- suggested to hold Pradaxa given recurrent falls and brain metastasis DVT prophylaxis: SCD boots. code status: DNR/DNI.Spoke to Pt's Daughter. Quality Stroke Does the patient have a stroke diagnosis?: No VTE Prior VTE?: No VTE Risk Level:: Medical - moderate - high VTE Device Contraindication: N/A - Device Ordered VTE Drug Contraindication: Treatment Not Indicated
--- NOTE | 2021-10-20 19:34 | PC.NURSE ---
Assumed care of pt at 1900. Pt resting in bed, in NAD, O2 intact, family at bedside. CTs complete. Awaiting inpatient bed. Pt and family member deny needs, given call light and educated to call for assistance
--- NOTE | 2021-10-20 19:53 | PHA.MEDREC ---
Pharmacy Consult ? Medication Reconciliation Pharmacy has completed the medication reconciliation. Med box patient Thanks Gordon
[2021-10-20 20:38] VITALS: BP 111/56; PULSE 77; RESP 18; O2SAT 94
[2021-10-20] MEDS: Famotidine/PF 20 MG/2 ML VIAL IVPUSH (21:42)
[2021-10-20] MEDS: cefTRIAXone sodium 1 GM in 0.9 % Sodium Chloride 50 ML IV (21:44)
[2021-10-20] MEDS: Azithromycin 500 MG in 0.9 % Sodium Chloride 250 ML 125 MG IV (22:56)
[2021-10-21] MEDS: 0.9 % Sodium Chloride Flush 3 ML SYRINGE IVFLUSH ×2 (00:18→07:59)
[2021-10-21] MEDS: dexAMETHasone sod phosphate 4 MG/ML VIAL IVPUSH ×5 (00:18→23:56)
--- NOTE | 2021-10-21 00:23 | PC.NURSE ---
Report called to overflow RN, pt transferred in stable condition w/ all belongings
[2021-10-21 01:54] VITALS: BP 118/70; PULSE 80; RESP 20; TEMP 36.3; O2SAT 95
[2021-10-21 06:28] VITALS: BP 100/50; PULSE 81; RESP 22; TEMP 36.7; O2SAT 94
[2021-10-21] MEDS: Lactated Ringers 1,000 ML 80 ML IVCONT ×2 (07:58→20:36)
[2021-10-21] MEDS: Atorvastatin Calcium 20 MG TABLET PO (07:59)
[2021-10-21 08:22] LABS: MANUAL DIFF FLAG NO
[2021-10-21 08:24] LABS: Basophils Percent Auto 0.2 % (0-2); Hematocrit 39.9 % (37.0-47.0); Hemoglobin 13.2 g/dl (12.0-16.0); Imm Gran Abs Auto 0.05 X10*3/uL (0.00-0.03); Imm Gran Pct Auto 0.9 % (0.0-0.4); Lymphocytes Absolute Auto 0.7 X10*3/uL (1.2-4.9); Lymphocytes Percent Auto 13.6 % (20-40); Mean Corpuscular HGB Conc 33.1 g/dl (31.0-35.0); Mean Corpuscular Hemoglobin 30.2 pg (27.0-33.0); Mean Corpuscular Volume 91.3 fL (80.0-98.0); Mean Platelet Volume 11.2 fL (9.4-12.3); Monocytes Percent Auto 0.6 % (2-11); Neutrophils Absolute Auto 4.6 x10*3/uL (2.0-8.3); Neutrophils Percent Auto 84.7 % (45-73); Platelet Count 197 X10*3/uL (160-400); Red Blood Count 4.37 X10*6/uL (4.20-5.50); Red Cell Distribution Width 14.6 % (11.0-16.0); White Blood Count 5.4 X10*3/uL (4.8-10.8)
[2021-10-21 09:59] LABS: Anion Gap 16 (12-20); Blood Urea Nitrogen 75 mg/dL (9-16); Calcium 9.5 mg/dL (8.4-10.2); Carbon Dioxide 25 mmol/L (22-29); Chloride 101 mmol/L (96-108); Creatinine Clr Calc Pharmacy 18.4; Estimated Glomerular Filt Rate 23; Glucose Random 187 mg/dL (60-115); Sodium 137 mmol/L (135-145)
--- NOTE | 2021-10-21 11:04 | PC.NURSE ---
Pt Alert, oriented to person and place only at this time, pt can hallucinate at times but can be quickly reoriented to current situation. IV in L AC replaced to L forarm for positioning with fluids running. Pt inc, pericare performed along with linen change. Pt nSR on monitor, no complaints of pain. Medicated as per [facility] orders. Daughter at bedside, questioning DC with hospice care, explained pt will have a case fitter prior to DC for all DC needs. Oncologist came by this AM. Call patterson within reach, bd alarm on, will continue to monitor.
--- NOTE | 2021-10-21 12:30 | PM.HEMONCCN ---
Subjective - Subjective Chief complaint: brain metastses Patient: new to practice Consult date: 10/21/21 Primary Care Provider: Unknown Physician HPI - Consult Narrative Narrative: Ronald Mendez is a 85 year old female admitted via the emergency room for recent falls and weakness. A CT scan of the brain shows sixmetastatic lesions. A CT scan of the chest shows a mass in the rilght lung and a smaller one below. A CT of the abdomen showed lytic destruction of a pubic ramus. A tissue diagnosis is not available. She is receiving dexamethasone for cerebral edema. Review of Systems - ENT Reports other - Cardiovascular Reports shortness of breath - Respiratory Reports cough - Gastrointestinal Reports other - Genitourinary Reports urinary incontinence - Musculoskeletal Reports decreased muscle mass - Neurologic Reports frequent falls, Reports lack of coordination [facility] Medical History: Medical History (Last Reviewed 10/20/21 @ 16:44 by Ana Pedroza MD) FH: cholecystectomy Surgical History: Surgical History (Last Reviewed 10/20/21 @ 16:44 by Ana Pedroza MD) History of appendectomy Social History: Social History (Last Reviewed 10/05/21 @ 13:55 by Benito Omer MD) Tobacco History: Patient Tobacco Use Status: Former Tobacco user Advance Directives: Advance Directives: No Advance Directives Information Provided: No Home Medications and Allergies Current Medications: Current Medications Acetaminophen (Acetaminophen 325 Mg Tablet) 650 mg PO Q6H PRN PRN Reason: Pain, Mild (Pain Scale 1-3) Atorvastatin Calcium (Atorvastatin Calcium 20 Mg Tablet) 20 mg PO DAILY [facility] Last Admin: 10/21/21 07:59 Dose: 20 mg Documented by: Dexamethasone Sodium Phosphate (Dexamethasone Sod Phosphate 4 Mg/Ml Vial) 4 mg IVPUSH Q6H [facility] Last Admin: 10/21/21 05:12 Dose: 4 mg Documented by: Lactated Ringer's (Lr) 1,000 mls @ 80 mls/hr IVCONT .[id number] [facility] Last Admin: 10/21/21 07:58 Dose: 80 mls/hr Documented by: Omeprazole (Omeprazole 20 Mg Capsule.) 20 mg PO DAILY@0630 [facility] Pharmacy Consult (Consult Rx Perform Med Rec) 1 each MISCELLANE ONCE PRN PRN Reason: Consult order Senna (Sennosides 8.6 Mg Tablet) 17.2 mg PO BEDTIME PRN PRN Reason: Constipation Sodium Chloride (0.9 % Sodium Chloride Flush 3 Ml Syringe) 3 ml IVFLUSH QSHIFT [facility] Last Admin: 10/21/21 07:59 Dose: 3 ml Documented by: Home Medications Medication Instructions Recorded Confirmed Type atorvastatin 20 mg tablet 1 tab PO DAILY 10/20/21 10/20/21 History calcium carbonate 600 mg-vitamin 1 tab PO BID 10/20/21 10/20/21 History D3 10 mcg (400 unit) tablet dabigatran etexilate 75 mg capsule 1 cap PO BID 10/20/21 10/20/21 History (Pradaxa) diltiazem HCl 180 mg 1 cap PO QAM 10/20/21 10/20/21 History capsule,extended release 24 hr, controlled (DILT-XR) lisinopril 20 mg tablet 1 tab PO DAILY 10/20/21 10/20/21 History Allergies Allergy/AdvReac Type Severity Reaction Status Date / Time No Known Allergies Allergy Verified 10/20/21 16:11 [No Known Allergies*] Physical Exam Vital signs: Vital Signs Temp 98.0 F 10/21/21 06:28 Pulse 81 10/21/21 06:28 Resp 22 H 10/21/21 06:28 BP 100/50 L 10/21/21 06:28 Pulse Ox 94 10/21/21 06:28 Intake & Output 10/20/21 10/21/21 10/21/21 18:59 06:59 18:59 Intake Total 420 / 420 Balance 420 / 420 Intake: Intake, Oral Amount 120 / 120 Intake, IV Amount 300 / 300 Azithromycin 500 mg In 0.9 % 250 / 250 Sodium Chloride 250 ml @ 125 mls/hr IV Q24H [facility] Rx#: [id number] cefTRIAXone sodium 1 gm In 0.9 50 / 50 % Sodium Chloride 50 ml @ 100 mls/hr IV Q24H [facility] Rx#: [id number] Other: Number of Incontinent Voids 1 Weight 66.9 kg Weight 66.9 kg - Constitutional Present: no acute distress - Routine HEENT Exam Head: Present: atraumatic Eye: Present: EOMI ENT: Present: mucous membranes moist - Routine Neck Exam Present: supple, full ROM - Routine Cardiovascular Exam Cardiovascular: Present: RRR - Routine Abdominal Exam Present: diminished bowel sounds - Routine Extremities Exam Present: nontender - Routine Skin Exam Present: intact - Routine Neurological Exam Present: sensory deficit, motor deficit, pronator drift Hem/Onc Consult Result - Labs CBC & Chem 7: 10/21/21 07:58 10/21/21 09:19 Labs: Short CBC 10/20/21 10/21/21 Range/Units 17:19 07:58 WBC 6.9 5.4 (4.8-10.8) X10*3/uL Hgb 13.7 13.2 (12.0-16.0) g/dl Hct 41.4 39.9 (37.0-47.0) % Plt Count 227 197 (160-400) X10*3/uL BMP 10/20/21 10/21/21 17:19 09:19 Sodium 137 137 Potassium 5.1 5.0 Chloride 100 101 Carbon Dioxide 26 25 BUN 68 H 75 H Creatinine 2.38 H 2.05 H Calcium 9.8 9.5 Cardiac Enzymes 10/20/21 Range/Units 17:19 Total Creatine Kinase 43 (26-140) U/L Assessment and Plan Patient Active problem list reviewed?: Yes (1) Intracranial mass Start date: 10/21/21 Status: Acute Assessment and plan: She appears to 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 She has no pain. We should speak with the family to ascertain the aggressivenes with which to proceed.Hospice with or without a tissue diagnosis is an option. For antineoplastic treatment a tussue diagnosis can be had by FNA if lung or biopsy of the pubic ramus. Sputa for cytology may be helpful. I recommend oral dexamethasone for cerebraledema. Radiation would prolong life months but not years. - Time Spent With Patient Time Spent with Patient (in minutes): 30
--- NOTE | 2021-10-21 12:51 | P.PNIM_ITS ---
Subjective Subjective Date of Service: 10/21/21 Interval History: cc: weakness interval hsitory: no pain, no sob Cardiovascular Cardiovascular: Reports no additional cardiovascular complaints Respiratory Respiratory: Reports no additional respiratory complaints Physical Exam Verdana 4l Vital Signs: Verdana 4d Verdana 4d Vital Signs: Verdana 4d Verdana 4Bd Last Vital Signs Verdana 4d Photoengraver New 4d Photoengraver New 4d Temp 98.0 F 10/21/21 06:28 Photoengraver New 4d Pulse 81 10/21/21 06:28 Photoengraver New 4d Resp 22 H 10/21/21 06:28 BP 100/50 L 10/21/21 06:28 Pulse Ox 94 10/21/21 06:28 BMI result Body Mass Index 23.8 General: AO X 3, frail Resp: diminished bilateral, no accessory muscles used CVS: S1,S2,RRR GI: soft, non tender, non distended Neuro: motor grossly intact, alert Psych: appropriate affect, impaired insight Objective Data Active Medications Acetaminophen (Acetaminophen 325 Mg Tablet) 650 mg PO Q6H PRN PRN Reason: Pain, Mild (Pain Scale 1-3) Atorvastatin Calcium (Atorvastatin Calcium 20 Mg Tablet) 20 mg PO DAILY [facility] Last Admin: 10/21/21 07:59 Dose: 20 mg Documented by: STEPHANIE Dexamethasone Sodium Phosphate (Dexamethasone Sod Phosphate 4 Mg/Ml Vial) 4 mg IVPUSH Q6H [facility] Last Admin: 10/21/21 05:12 Dose: 4 mg Documented by: VENKATA Lactated Ringer's (Lr) 1,000 mls @ 80 mls/hr IVCONT .[id number] [facility] Last Admin: 10/21/21 07:58 Dose: 80 mls/hr Documented by: STEPHANIE Omeprazole (Omeprazole 20 Mg Capsule.Dr) 20 mg PO DAILY@0630 [facility] Pharmacy Consult (Consult Rx Perform Med Rec) 1 each MISCELLANE ONCE PRN PRN Reason: Consult order Senna (Sennosides 8.6 Mg Tablet) 17.2 mg PO BEDTIME PRN PRN Reason: Constipation Sodium Chloride (0.9 % Sodium Chloride Flush 3 Ml Syringe) 3 ml IVFLUSH QSHIFT [facility] Last Admin: 10/21/21 07:59 Dose: 3 ml Documented by: STEPHANIE Labs CBC & Chem 7: 10/21/21 07:58 10/21/21 09:19 Labs: Laboratory Results - last 24 hr 10/20/21 10/20/21 10/20/21 17:19 17:19 17:19 MCV 90.8 MCH 30.0 MCHC 33.1 RDW 14.8 Plt Count 227 MPV 11.5 Immature Gran % (Auto) 0.4 Neut % (Auto) 67.8 Lymph % (Auto) 17.1 L [place] % (Auto) 8.5 Eos % (Auto) 5.2 H Baso % (Auto) 1.0 Lymph # (Auto) 1.2 [place] # (Auto) 0.6 Eos # (Auto) 0.4 Baso # (Auto) 0.1 Abs Immat Gran (auto) 0.03 Absolute Neuts (auto) 4.7 Absolute Nucleated RBC 0.000 Nucleated RBC % (auto) 0.0 D-Dimer High Sensitivty 582 Anion Gap 16 Estim Creat Clear Calc 15.8 Estimated GFR 19 Random Glucose 103 Calcium 9.8 Phosphorus 4.8 H Magnesium 2.3 Lactate Dehydrogenase 208 Total Creatine Kinase 43 C-Reactive Protein 4.64 H Procalcitonin COVID-19 (KRUNAL) COVID-19 Clin Com Influenza Type A (SAMREEN) Influenza Type B (SAMREEN) Influenza A & B Note 10/20/21 10/20/21 10/20/21 17:19 17:24 17:24 MCV MCH MCHC RDW Plt Count MPV Immature Gran % (Auto) Neut % (Auto) Lymph % (Auto) [place] % (Auto) Eos % (Auto) Baso % (Auto) Lymph # (Auto) [place] # (Auto) Eos # (Auto) Baso # (Auto) Abs Immat Gran (auto) Absolute Neuts (auto) Absolute Nucleated RBC Nucleated RBC % (auto) D-Dimer High Sensitivty Anion Gap Estim Creat Clear Calc Estimated GFR Random Glucose Calcium Phosphorus Magnesium Lactate Dehydrogenase Total Creatine Kinase C-Reactive Protein Procalcitonin 0.16 COVID-19 (KRUNAL) Negative COVID-19 Clin Com See Note Influenza Type A (SAMREEN) Negative Influenza Type B (SAMREEN) Negative Influenza A & B Note See Note 10/21/21 10/21/21 07:58 09:19 MCV 91.3 MCH 30.2 MCHC 33.1 RDW 14.6 Plt Count 197 MPV 11.2 Immature Gran % (Auto) 0.9 H Neut % (Auto) 84.7 H Lymph % (Auto) 13.6 L [place] % (Auto) 0.6 L Eos % (Auto) 0.0 Baso % (Auto) 0.2 Lymph # (Auto) 0.7 L [place] # (Auto) 0.0 L Eos # (Auto) 0.0 Baso # (Auto) 0.0 Abs Immat Gran (auto) 0.05 H Absolute Neuts (auto) 4.6 Absolute Nucleated RBC 0.000 Nucleated RBC % (auto) 0.0 D-Dimer High Sensitivty Anion Gap 16 Estim Creat Clear Calc 18.4 Estimated GFR 23 Random Glucose 187 H Calcium 9.5 Phosphorus Magnesium Lactate Dehydrogenase Total Creatine Kinase C-Reactive Protein Procalcitonin COVID-19 (KRUNAL) COVID-19 Clin Com Influenza Type A (SAMREEN) Influenza Type B (SAMREEN) Influenza A & B Note Assessment and Plan (1) Intracranial mass: Status: Acute Plan 85F presented with weakness and hypoxia, 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 acute hypoxic respiratory failure due to lung ca/copd asymptomatic plan for home o2 eval on discharge SHADE due to poor intake diet ordered 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 cancer with brain mets d/w family, plan for hospice at home continue decadron IV while inpatient, on discharge 4mg bid patient denies pain at this time dc pradaxa history of CVA was on pradaxa (no known afib, probably due to reported history of cardiomyopathy - though most recent echo had normal EF) pradaxa stopped due to brain mets can dc statin given goals of care HTN dc lisinopril no evidence of pneumonia dc antibiotics DNR/DNI Quality Stroke Does the patient have a stroke diagnosis?: No VTE Prior VTE?: No VTE Risk Level:: Medical - moderate - high VTE Device Contraindication: N/A - Device Ordered VTE Drug Contraindication: Treatment Not Indicated
[2021-10-21 13:19] VITALS: BP 125/65; PULSE 100; RESP 24; TEMP 36.4; O2SAT 97
--- NOTE | 2021-10-21 13:24 | MHC.CM.PN ---
Addendum entered by Asmita Chanel 10/21/21 14:52: [facility] will not be able to provide informational meeting or sign patient onto hospice before Saturday. Referral broadcasted in [employer] to see if any agency will be able to provide family with an informational hospice meeting tomorrow, 10/22/2021 to see if patient would be eligible to be admitted to hospice. Original Note: Patient currently admitted to ER overflow. Patient has a history of lung cancer with brain mets. Per Dr Whipple, son and daughter are interested in hospice at home. Referral made to [facility] at this time. Continue to monitor for d/c needs.
[2021-10-21 16:00] VITALS: BP 113/66; PULSE 90; RESP 18; TEMP 36.5; O2SAT 93
[2021-10-21 19:35] VITALS: BP 150/72; PULSE 87; RESP 18; TEMP 36.5; O2SAT 95
[2021-10-21] MEDS: Nystatin Powder 15 GM BOTTLE 1 APPL TOPICAL (20:34)
[2021-10-21 23:16] VITALS: BP 138/84; PULSE 78; RESP 20; TEMP 36.7; O2SAT 98
[2021-10-22 03:03] VITALS: RESP 18
[2021-10-22] MEDS: dexAMETHasone sod phosphate 4 MG/ML VIAL IVPUSH ×3 (05:56→18:00)
[2021-10-22] MEDS: Omeprazole 20 MG CAPSULE.DR PO (05:56)
[2021-10-22 07:29] VITALS: BP 151/78; PULSE 77; RESP 17; TEMP 36.1; O2SAT 93
[2021-10-22] MEDS: Lactated Ringers 1,000 ML 80 ML IVCONT ×2 (07:47→19:37)
[2021-10-22] MEDS: Nystatin Powder 15 GM BOTTLE 1 APPL TOPICAL ×3 (07:47→19:37)
--- NOTE | 2021-10-22 08:42 | P.PNIM_ITS ---
Subjective Subjective Date of Service: 10/22/21 Interval History: cc: weakness interval hsitory: no pain, no sob Cardiovascular Cardiovascular: Reports no additional cardiovascular complaints Respiratory Respiratory: Reports no additional respiratory complaints Physical Exam Verdana 4l Vital Signs: Verdana 4d Verdana 4d Vital Signs: Verdana 4d Verdana 4Bd Last Vital Signs Verdana 4d Clinical Trial Assistant New 4d Clinical Trial Assistant New 4d Temp 97.0 F 10/22/21 07:29 Clinical Trial Assistant New 4d Pulse 77 10/22/21 07:29 Clinical Trial Assistant New 4d Resp 17 10/22/21 07:29 BP 151/78 H 10/22/21 07:29 Pulse Ox 93 10/22/21 07:29 BMI result Body Mass Index 23.8 General: AO X 3, frail Resp:? diminished bilateral, no accessory muscles used CVS: S1,S2,RRR GI: soft, non tender, non distended Neuro:? motor grossly intact, alert Psych: appropriate affect, impaired insight? Objective Data Active Medications Acetaminophen (Acetaminophen 325 Mg Tablet) 650 mg PO Q6H PRN PRN Reason: Pain, Mild (Pain Scale 1-3) Dexamethasone Sodium Phosphate (Dexamethasone Sod Phosphate 4 Mg/Ml Vial) 4 mg IVPUSH Q6H [facility] Last Admin: 10/22/21 05:56 Dose: 4 mg Documented by: GREGORIO Lactated Ringer's (Lr) 1,000 mls @ 80 mls/hr IVCONT .[id number] [facility] Last Admin: 10/22/21 07:47 Dose: 80 mls/hr Documented by: KELLEY Nystatin (Nystatin Powder 15 Gm Bottle) 1 appl TOPICAL TID [facility]; Protocol Last Admin: 10/22/21 07:47 Dose: 1 appl Documented by: KELLEY Omeprazole (Omeprazole 20 Mg Capsule.Dr) 20 mg PO DAILY@0630 [facility] Last Admin: 10/22/21 05:56 Dose: 20 mg Documented by: GREGORIO Pharmacy Consult (Consult Rx Perform Med Rec) 1 each MISCELLANE ONCE PRN PRN Reason: Consult order Senna (Sennosides 8.6 Mg Tablet) 17.2 mg PO BEDTIME PRN PRN Reason: Constipation Sodium Chloride (0.9 % Sodium Chloride Flush 3 Ml Syringe) 3 ml IVFLUSH QSHIFT [facility] Last Admin: 10/22/21 07:41 Dose: Not Given Documented by: KELLEY Non-Admin Reason: IV Running Labs CBC & Chem 7: 10/21/21 07:58 10/21/21 09:19 Labs: Laboratory Results - last 24 hr 10/21/21 09:19 Anion Gap 16 Estim Creat Clear Calc 18.4 Estimated GFR 23 Random Glucose 187 H Calcium 9.5 Assessment and Plan (1) Intracranial mass: Status: Acute Plan 85F presented with weakness and hypoxia, 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 acute hypoxic respiratory failure due to lung ca/copd asymptomatic plan for home o2 eval on discharge SHADE due to poor intake continue ivf 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 cancer with brain mets d/w family, plan for hospice at home, awaiting hospice eval continue decadron IV while inpatient, on discharge 4mg bid patient denies pain at this time dced pradaxa history of CVA was on pradaxa (no known afib, probably due to reported history of cardiomyopathy - though most recent echo had normal EF) pradaxa stopped due to brain mets dced statin given goals of care HTN dced lisinopril no evidence of pneumonia dced antibiotics DNR/DNI Quality Stroke Does the patient have a stroke diagnosis?: No VTE Prior VTE?: No VTE Risk Level:: Medical - moderate - high VTE Device Contraindication: N/A - Device Ordered VTE Drug Contraindication: Treatment Not Indicated
[2021-10-22 11:46] VITALS: BP 131/66; PULSE 90; RESP 20; TEMP 36.6; O2SAT 96
[2021-10-22] MEDS: Acetaminophen 325 MG TABLET 650 MG PO (14:11)
--- NOTE | 2021-10-22 14:51 | MHC.CM.PN ---
[facility] IS ACCEPTING REFERRAL AND HAS ORDERED PTS EQUIPMENT TO BE DELIVERED TOMORROW PT WILL DC HOME TOMORROW WITH [facility] BLS TRANSPORT
[2021-10-22 15:20] VITALS: BP 132/67; PULSE 86; RESP 18; TEMP 36.2; O2SAT 94
[2021-10-22 19:22] VITALS: BP 118/56; PULSE 84; RESP 18; TEMP 36.2; O2SAT 95
[2021-10-22 23:26] VITALS: BP 127/60; PULSE 53; RESP 16; TEMP 36.1; O2SAT 97
[2021-10-23] MEDS: dexAMETHasone sod phosphate 4 MG/ML VIAL IVPUSH ×3 (01:34→11:58)
[2021-10-23 03:20] VITALS: BP 147/70; PULSE 63; RESP 16; TEMP 36.1; O2SAT 98
[2021-10-23] MEDS: Omeprazole 20 MG CAPSULE.DR PO (05:42)
[2021-10-23 07:23] VITALS: BP 126/78; PULSE 75; RESP 18; TEMP 36.4; O2SAT 97
[2021-10-23] MEDS: Nystatin Powder 15 GM BOTTLE 1 APPL TOPICAL (08:16)
[2021-10-23] MEDS: Lactated Ringers 1,000 ML 80 ML IVCONT (08:16)
--- NOTE | 2021-10-23 08:47 | P.PNIM_ITS ---
Subjective Subjective Date of Service: 10/23/21 Interval History: cc: weakness interval hsitory: no pain, no sob Cardiovascular Cardiovascular: Reports no additional cardiovascular complaints Respiratory Respiratory: Reports no additional respiratory complaints Physical Exam Verdana 4l Vital Signs: Verdana 4d Verdana 4d Vital Signs: Verdana 4d Verdana 4Bd Last Vital Signs Verdana 4d Battalion Chief New 4d Battalion Chief New 4d Temp 97.6 F 10/23/21 07:23 Battalion Chief New 4d Pulse 75 10/23/21 07:23 Battalion Chief New 4d Resp 18 10/23/21 07:23 BP 126/78 10/23/21 07:23 Pulse Ox 97 10/23/21 07:23 BMI result Body Mass Index 23.8 General: AO X 3, frail Resp:? diminished bilateral, no accessory muscles used CVS: S1,S2,RRR GI: soft, non tender, non distended Neuro:? motor grossly intact, alert Psych: appropriate affect, impaired insight? Objective Data Active Medications Acetaminophen (Acetaminophen 325 Mg Tablet) 650 mg PO Q6H PRN PRN Reason: Pain, Mild (Pain Scale 1-3) Last Admin: 10/22/21 14:11 Dose: 650 mg Documented by: KELLEY Dexamethasone Sodium Phosphate (Dexamethasone Sod Phosphate 4 Mg/Ml Vial) 4 mg IVPUSH Q6H [facility] Last Admin: 10/23/21 05:42 Dose: 4 mg Documented by: WOLF Lactated Ringer's (Lr) 1,000 mls @ 80 mls/hr IVCONT .[id number] [facility] Last Admin: 10/23/21 08:16 Dose: 80 mls/hr Documented by: ILENE Nystatin (Nystatin Powder 15 Gm Bottle) 1 appl TOPICAL TID [facility]; Protocol Last Admin: 10/23/21 08:16 Dose: 1 appl Documented by: ILENE Omeprazole (Omeprazole 20 Mg Capsule.) 20 mg PO DAILY@0630 [facility] Last Admin: 10/23/21 05:42 Dose: 20 mg Documented by: WOLF Pharmacy Consult (Consult Rx Perform Med Rec) 1 each MISCELLANE ONCE PRN PRN Reason: Consult order Senna (Sennosides 8.6 Mg Tablet) 17.2 mg PO BEDTIME PRN PRN Reason: Constipation Sodium Chloride (0.9 % Sodium Chloride Flush 3 Ml Syringe) 3 ml IVFLUSH QSHIFT [facility] Last Admin: 10/23/21 08:16 Dose: Not Given Documented by: ILENE Non-Admin Reason: IV Running Labs CBC & Chem 7: 10/21/21 07:58 10/21/21 09:19 Assessment and Plan (1) Intracranial mass: Status: Acute Plan 85F presented with weakness and hypoxia, 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 acute hypoxic respiratory failure due to lung ca/copd asymptomatic plan for home o2 eval on discharge SHADE due to poor intake continue ivf 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 cancer with brain mets d/w family, plan for hospice at home, awaiting set up continue decadron IV while inpatient, on discharge 4mg bid patient denies pain at this time dced pradaxa history of CVA was on pradaxa (no known afib, probably due to reported history of cardiomyopathy - though most recent echo had normal EF) pradaxa stopped due to brain mets dced statin given goals of care HTN dced lisinopril no evidence of pneumonia dced antibiotics DNR/DNI Quality Stroke Does the patient have a stroke diagnosis?: No VTE Prior VTE?: No VTE Risk Level:: Medical - moderate - high VTE Device Contraindication: N/A - Device Ordered VTE Drug Contraindication: Treatment Not Indicated
--- NOTE | 2021-10-23 09:20 | MHC.CM.PN ---
CM MET W/PT AND DTR TO DISCUSS DCP, DTR REPORTS PT LIVES [place] AND THEY BOTH ASSIST PT W/CARE AND PT HAS [employer] 3XWK, DTR REPORTS SON IS CALLING [facility] TO FIND OUT TIME OF DELIVERY OF HOSPITAL BED AND O2, PT ANXIOUS TO GO HOME SO CM CONTACTED [facility] TO FIND OUT O2 COMPANY THEY USE, PER [facility] THEY USE [facility] SO WE ARE UNABLE TO SEND PT HOME EARLIER W/LOANER TANK PT IS ON 2L O2 CONTINUOS. [facility] LIAISON WHO [facility] SPOKE WITH WAS NOT AWARE OF TIME OF INTAKE OR DELIVERY, HOWEVER ITEMS HAVE BEEN DELIVERED. D/C PLAN: HOME W/[facility], FAMILY SUPPORT AND [employer], [facility] FOR BLS TRANSPORT
--- NOTE | 2021-10-23 09:29 | P.DS_ITS ---
DS: Providers Provider Date of Service: 10/23/21 Date of admission: 10/20/21 19:28 Primary care physician: Unknown Physician Consults: 10/20/21 19:28 Consult to Hematology / Oncology Routine Consulting Provider: Carlos Rodriguez Reason for consultation: Brain mets; DS: Diagnosis Discharge Diagnosis (1) Intracranial mass: Status: Acute DS: Summary Hospital Course Hospital Course: patient was admitted for weakness and acute hypoxic respiratory failure secondary to new diagnosis of presumed lung cancer with brain mets, complicated by SHADE. she was given IV decadron and oxygen. discussion was had with family and decision not to pursue aggressive work up. patient will be discharged home on hospice. her disease directed medications will be discontinued, especially pradaxa given willam mets. she will continue on decadron 4mg bid for brain edema. Time Spent with Patient Time attestation: Total time spent providing and/or coordinating discharge services: Discharge coordination time: Greater than 30 minutes Quality: Stroke Does the patient have a stroke diagnosis?: No Physical Exam Vital Signs: Vital Signs: Last Vital Signs Temp 97.6 F 10/23/21 07:23 Pulse 75 10/23/21 07:23 Resp 18 10/23/21 07:23 BP 126/78 10/23/21 07:23 Pulse Ox 97 10/23/21 07:23 BMI result Body Mass Index 23.8 Discharge Plan Discharge Patient Disposition: Hospice - Home Discharge Diagnosis: lung cancer Referrals: [facility] [Outside] - 1 Day (HOSPICE START OF CARE 10/23/21.) Physician,Unknown J [Primary Care Provider] - 1 Week Discharge Medications: New nystatin 100,000 unit/gram Powder 1 appl topical TID Qty: 15 0RF Protocol: Apply to: Apply to: rash dexamethasone [Decadron] 4 mg tablet 4 mg PO BID Qty: 60 0RF Discontinued atorvastatin 20 mg tablet 1 tab PO DAILY 0RF lisinopril 20 mg tablet 1 tab PO DAILY 0RF diltiazem HCl [DILT-XR] 180 mg capsule,ext.rel 24h degradable 1 cap PO QAM 0RF calcium carbonate-vitamin D3 600 mg-10 mcg (400 unit) tablet 1 tab PO BID 0RF Pradaxa 75 mg capsule 1 cap PO BID 0RF Discharge Orders: Discharge Order (Routine); Ordered 10/23/21 Ordered By: Poli Whipple Diet: advance to usual diet Activity on Discharge: As tolerated Stand Alone Forms: Patient Portal Discharge page Care Plan Goals: comfort Health Concerns: lung cancer Plan of Treatment: decadron to reduce brain edema, hospice Assessment: seem above
--- NOTE | 2021-10-23 09:54 | PC.NURSE ---
Skin assessment completed. Patient has a rash under left breast- Nystatin applied. A bruise is noted on buttock. Patient will be going home on hospice.
[2021-10-23 11:26] VITALS: BP 166/90; PULSE 73; RESP 18; TEMP 36.3; O2SAT 97
[2021-10-23 13:37] VITALS: BMI 23.8
== END 2021-10-23 14:18 | disposition hospice, home (50) | DRG 180 ==
LOC: HO.ED 19:25 → HO.EDOVER 19:45 → HO.S3 10-21 15:31
PROVIDERS: Admitting Provider Hospitalist; Emergency Provider Emergency Medicine Emergency Medical Services; Visit Provider Internal Medicine
DX: C34.11 Malignant neoplasm of upper lobe, right bronchus or lung (principal); J96.01 Acute respiratory failure with hypoxia; C79.31 Secondary malignant neoplasm of brain; C79.51 Secondary malignant neoplasm of bone; I42.9 Cardiomyopathy, unspecified; C79.72 Secondary malignant neoplasm of left adrenal gland; C79.71 Secondary malignant neoplasm of right adrenal gland; C77.8 Secondary and unspecified malignant neoplasm of lymph nodes of multiple regions; R29.6 Repeated falls; J44.9 Chronic obstructive pulmonary disease, unspecified; I12.9 Hypertensive chronic kidney disease with stage 1 through stage 4 chronic kidney disease, or unspecified chronic kidney disease; N18.9 Chronic kidney disease, unspecified; Z91.81 History of falling; Z86.73 Personal history of transient ischemic attack (TIA), and cerebral infarction without residual deficits; Z20.822 Contact with and (suspected) exposure to COVID-19; Z87.891 Personal history of nicotine dependence; Z79.899 Other long term (current) drug therapy; Z66 Do not resuscitate
CPT/HCPCS: 36415; 70450; 71045; 71250; 72125; 73502; 73700; 74176; 80048; 82550; 83615; 83735; 84100; 84145; 84484; 85025; 85379; 86140; 87502; 87635; 93005; 96374; 99285; 99291; J0456; J0696; J1100; J2930